=== PATIENT | male | born 1975 | race Caucasian/White ===

== ENCOUNTER 2019-03-15 12:43 | Emergency (ER) | payer SELFPAY ==
--- NOTE | 2019-03-15 15:18 | ED ---
Back Pain - HPI Summary HPI Summary: Seen by provider in H2 at 1507. The patient is a 43 y/o M presenting to [facility] accompanied by girlfriend's son Donald with a chief complaint of worsening lumbar spine pain that is chronic in nature but with a recurrent episode beginning on 03/13/19. He reports that he has had low back pain for approximately the last year, but this episode is noted as the worse one he has experienced thus far. When the pain started, he used 800mg Ibuprofen, with last dosage taken at 0800 today 03/15/19, to some relief of the pain, and there hasn't been any relief using heating pads. He notes that the back pain radiates throughout the bilateral lower back, and when he places more weight on the right lower enormity, there is "more pressure on the back," causing more pain. He additionally c/o numbness extending over the anterior right thigh, but it does not extend below the knee. The numbness is aggravated with sitting, especially for long periods of time. The numbness is not currently present while lying in the stretcher. Currently, the back pain is rated 7/10 in severity. He also denies any bladder or bowel incontinence. He denies any trauma to the back, and he states he hasn't recently pulled any muscles or lifted anything too heavy. Pt currently has no PCP. PMHx: HLD ( uncontrolled), cardiac hx (unsure of exact dx but supposed to take ASA). Heavy every day cigarette smoker, rare EtOH, no substance use. Vital signs from triage: HR 70 bpm, BP 121/91 mmHg, O2 sat 70% Medication non-compliant (supposed to be taking HLD meds and ASA). - History of Current Complaint Chief Complaint: EDBackInjuryPain Stated Complaint: BACK PAIN PER PT Time Seen by Provider: 03/15/19 15:07 Hx Obtained From: Patient Onset/Duration: Gradual Onset, Lasting Days - since 03/13/19, Still Present Onset/Duration: Started Days Ago, Atraumatic Timing: Constant, Lasting Days Back Pain Location: Is Discrete @ - bilateral low back Severity Initially: Mild Severity Currently: Moderate Pain Intensity: 7 Pain Scale Used: 0-10 Numeric Character: Aching Aggravating Symptom(s): Other - placing more weight on right leg increases back pain, sitting for extended periods of time worsens numbness in right thigh Alleviating Symptom(s): Other - Ibuprofen to mild to no relief, heating pads to no relief Associated Signs And Symptoms: Positive: Numbness - in right anterior thigh ( not below knee), Pain with Weight Bearing - placing more weight on right leg. Negative: Bladder Incontinence, Bowel Incontinence - Allergies/Home Medications Allergies/Adverse Reactions: Allergies Allergy/AdvReac Type Severity Reaction Status Date / Time No Known Allergies Allergy Verified 03/15/19 12:52 PMH/Surg Hx/FS Hx/Imm Hx Previously Healthy: No Endocrine/Hematology History: Reports: Hx Anticoagulant Therapy - ASA but not medication compliant Denies: Hx Diabetes Cardiovascular History: Reports: Hx Hypercholesterolemia, Other Cardiovascular Problems/Disorders - unknown dx to pt but he is "supposed to take ASA" Denies: Hx Hypertension - Surgical History Surgical History: None Surgery Procedure, Year, and Place: none Infectious Disease History: No Infectious Disease History: Denies: Traveled Outside the [place] in Last 30 Days - Family History Known Family History: Positive: Cardiac Disease - Social History Alcohol Use: Rare Hx Substance Use: No Substance Use Type: Reports: None Hx Tobacco Use: Yes Smoking Status (MU): Heavy Every Day Tobacco Smoker Review of Systems Constitutional: Negative Cardiovascular: Negative Respiratory: Negative Positive: Other - Negative: incontinence of stool Negative: incontinence Positive: Other - lumbar back pain, bilateral Skin: Negative Positive: Numbness - in right anterior thigh All Other Systems Reviewed And Are Negative: Yes Physical Exam - Summary Physical Exam Summary: Appearance: Well-appearing, moderate pain distress, well-nourished, strong odor of cigarette smoke Skin: Warm, color reflects adequate perfusion, dry Head: Normal Head/Face inspection, atraumatic Eyes: Conjunctiva clear ENT: Normal inspection Neck: Supple, no nodes, no JVD Respiratory: Lungs clear, normal breath sounds, no respiratory distress Cardio: RRR, No murmur, pulses normal, brisk capillary refill Abdomen: Soft, nontender Bowel sounds: Present Musculoskeletal: Strength Intact especially bilat lower extremites/ROM intact, sensation intact to light touch especially bilateral lower extremties, no calf tenderness, no edema, no spinal tenderness, bilateral paraspinous tenderness in lumbar area Psychological: Normal Neuro: Alert, muscle tone normal, no focal deficit, able to bear weight, normal gait. No weakness or dorsiflexion or plantar flexion. Triage Information Reviewed: Yes Vital Signs On Initial Exam: Initial Vitals Temp Pulse Resp BP Pulse Ox 98.6 F 70 18 121/91 98 03/15/19 12:49 03/15/19 12:49 03/15/19 12:49 03/15/19 12:49 03/15/19 12:49 Vital Signs Reviewed: Yes Procedures - Sedation Patient Received Moderate/Deep Sedation with Procedure: No Diagnostics - Vital Signs Vital Signs Temp Pulse Resp BP Pulse Ox 03/15/19 12:49 98.6 F 70 18 121/91 98 - Laboratory Lab Statement: Any lab studies that have been ordered have been reviewed, and results considered in the medical decision making process. - CT Lumbar Spine CT CT Interpretation Completed By: Radiologist Summary of CT Findings: Impression: 1. No fracture or traumatic malalignment of the lumbar spine. 2. Varying degrees of multilevel spondylosis results in moderate bilateral neural foraminal stenosis at L5-S1. ED physician has reviewed this report. Re-Evaluation - Re-Evaluation First Eval Re-Evaluation Time: 16:59 Change: Improved Comment: The patient's pain has slightly improved with Flexeril, so we will continue to administer pain medication. Second Eval Re-Evaluation Time: 18:45 Change: Improved Comment: We discussed CT results and plan for discharge following improvement of pain with medication. Back Pain Course/Dx - Course Course Of Treatment: Pt medications reviewed this visit. Nurses notes reviewed. Allergies noted. Pt is a 43 y/o M with cc of bilateral lumbar back pain that is chronically present over the last year with onset of a severe episode beginnging 03/13/19 accopmanied by right thigh numbness that does not extend below the knee, and worsening of low back pain with bearing more weight on right leg. Upon physical exam, the patient is in moderate pain distress with a strong odor of cigarette smoker and exhibits bilateral paraspinous tenderness , but no focal weakness or neuro deficit. In the ED course, the patient was administered Morphine 4mg IV, Toradol 30mg IVx1, and Flexeril 10mg x 1 and ondansetron 4mg IV with relief of the pain. Lumbar spine CT impression is negative for fracture, misalignment, or bluging or herniated disc, but there is spondylosis and moderate bilateral foraminal stenosis at L5-S1 noted. He will be prescribed Flexeril and Percocet for pain management following discharge and he is referred to [facility] to get established with a PCP. He understands and agrees with this plan. - Diagnoses Differential Diagnosis/HQI/PQRI: Positive: Arthritis, Compressive Cord Syndrome , Herniated Disc, Neoplasm, Strain Provider Diagnoses: Lumbar strain, Tobacco abuse disorder Discharge ED - Sign-Out/Discharge Documenting (check all that apply): Patient Departure - Patient will be discharged home with girlfriend's son Donald driving Patient Received Moderate/Deep Sedation with Procedure: No - Discharge Plan Condition: Stable Disposition: HOME Prescriptions: Cyclobenzaprine TAB* [Flexeril 10 MG TAB*] 10 mg PO TID PRN #30 tab PRN Reason: Pain - Mild oxyCODONE/Acetamin 5/325 MG* [Percocet 5/325 TAB*] 1 tab PO Q4H PRN #18 tab MDD 6 PRN Reason: Pain - Severe Patient Education Materials: Low Back Strain (ED) Forms: *Work Release Referrals: [facility] [Outside] - 2 Days Additional Instructions: In the ER, you were given Flexeril 10mg IV, Ketorolac 30mg IV, Morphine 4mg IV, and Zofran. You are given a copy of the Lumbar Spine CT results does not show a bulging or herniated disc. You should continue to take Flexeril and Percocet for severe pain. DO NOT DRIVE A MOTOR VEHICLE WITHIN 8 HOURS OF TAKING THE PERCOCET. You are also given a referral to find a primary care physician. Return to the emergency department for any new or worsening symptoms. - Billing Disposition and Condition Condition: STABLE Disposition: Home - Attestation Statements Document Initiated by Rossy: Yes Documenting Scribe: Sue Cornelius Provider For Whom Rossy is Documenting (Include Credential): MD Jerry Laughlinibandrew Attestation: Sue Armstrong scribed for Dr. Briseyda Stewart MD on 04/30/19 at 1453. Scribe Documentation Reviewed: Yes Provider Attestation: The documentation as recorded by the Sue vazquez accurately reflects the service I personally performed and the decisions made by me, Dr. Briseyda Stewart MD Status of Scribe Document: Viewed
[2019-03-15] MEDS ORDERED: Cyclobenzaprine TAB* 10 MG PO ONE (15:23)
[2019-03-15] MEDS ORDERED: Ketorolac *IM* INJ* 60 MG/2 ML VIAL IM ONE (15:24)
[2019-03-15] MEDS ORDERED: Cyclobenzaprine TAB* 10 MG ONE (15:25)
[2019-03-15 15:36] LABS: Urine Appearance Clear; Urine Bilirubin Negative (Negative); Urine Blood Negative (Negative); Urine Color Straw; Urine Glucose Negative (Negative); Urine Ketones Negative (Negative); Urine Nitrite Negative (Negative); Urine Protein Negative (Negative); Urine Specific Gravity 1.002 (1.010-1.030); Urine Urobilinogen Negative (Negative)
[2019-03-15] MEDS ORDERED: Ketorolac INJ* 30 MG/ML 1 ML VIAL IV PUSH ONE (15:40)
[2019-03-15] MEDS ORDERED: Ondansetron INJ* 2 MG/ML VIAL IV ONE (17:30)
[2019-03-15] MEDS ORDERED: Morphine 4 MG/ML VIAL (1 ml) 4 MG/ML VIAL IV ONE (17:30)
[2019-03-15 18:01] VITALS: BP 149/82
== END 2019-03-15 18:00 | disposition home or self-care (01) ==
LOC: ED 12:43
DX: S39.012A Strain of muscle, fascia and tendon of lower back, initial encounter (principal); X58.XXXA Exposure to other specified factors, initial encounter; Y92.9 Unspecified place or not applicable; R20.0 Anesthesia of skin; M47.817 Spondylosis without myelopathy or radiculopathy, lumbosacral region; E78.00 Pure hypercholesterolemia, unspecified; Z79.82 Long term (current) use of aspirin; Z91.14 Patient's other noncompliance with medication regimen; F17.200 Nicotine dependence, unspecified, uncomplicated
CPT/HCPCS: 72131; 81003; 96374; 96375; 99282; A9270-GY; J1885; J2270; J2405

== ENCOUNTER 2019-05-08 18:11 | Emergency (ER) | payer SELFPAY ==
[2019-05-08 20:14] LABS: Urine Appearance Clear; Urine Bilirubin Negative (Negative); Urine Blood Negative (Negative); Urine Color Straw; Urine Glucose Negative (Negative); Urine Ketones Negative (Negative); Urine Nitrite Negative (Negative); Urine Protein Negative (Negative); Urine Specific Gravity 1.003 (1.010-1.030); Urine Urobilinogen Negative (Negative)
--- NOTE | 2019-05-08 21:06 | ED ---
GI/ HPI - HPI Summary HPI Summary: This patient is a 43 year old M presenting to [facility] with a chief complaint of intermittent R testicular pain since middle of last week depending on position particularly if sitting or not. Symptoms aggravated by position. Symptoms alleviated by nothing. Pt reports testicular swelling. Denies erythema, dysuria , and fever. Pt reports he never had similar symptoms before though he had a hernia when he was 1 yr old (had surgery). MHx hypercholesterolemia. Smokes currently. FMHx hypertension, cardiac issues. - History of Current Complaint Chief Complaint: EDUrogenitalProblems Time Seen by Provider: 05/08/19 19:35 Stated Complaint: R TESTICLE IS SWOLLEN PER PT Hx Obtained From: Patient Onset/Duration: Started Days Ago Timing: Intermittent Pain Intensity: 2 Additional Locations for Males: Testicles Associated Signs and Symptoms: Positive: Other: - testicular swelling; denies testicular erythema. Negative: Fever, Dysuria Aggravating Factor(s): Sitting Alleviating Factor(s): Nothing - Allergy/Home Medications Allergies/Adverse Reactions: Allergies Allergy/AdvReac Type Severity Reaction Status Date / Time No Known Allergies Allergy Verified 05/08/19 18:17 PMH/Surg Hx/FS Hx/Imm Hx Endocrine/Hematology History: Reports: Hx Anticoagulant Therapy - ASA but not medication compliant Denies: Hx Diabetes Cardiovascular History: Reports: Hx Hypercholesterolemia, Other Cardiovascular Problems/Disorders - unknown dx to pt but he is "supposed to take ASA" Denies: Hx Hypertension - Surgical History Surgery Procedure, Year, and Place: hernia surgery Infectious Disease History: No Infectious Disease History: Denies: Traveled Outside the [place] in Last 30 Days - Family History Known Family History: Positive: Cardiac Disease Negative: Hypertension - Social History Alcohol Use: Rare Hx Substance Use: No Substance Use Type: Reports: None Hx Tobacco Use: Yes Smoking Status (MU): Heavy Every Day Tobacco Smoker Review of Systems Negative: Fever Genitourinary: Other - denies testicular eythema, Positive: other - testicular pain, swelling. Negative: dysuria All Other Systems Reviewed And Are Negative: Yes Physical Exam - Summary Physical Exam Summary: Constitutional: Well-developed, Well-nourished, Alert. (-) Distressed Skin: Warm, Dry HENT: Normocephalic; Atraumatic Eyes: Conjunctiva normal Neck: Musculoskeletal ROM normal neck. (-) JVD, (-) Stridor, (-) Nuchal rigidity Cardio: Rhythm regular, rate normal, Heart sounds normal; Intact distal pulses; Radial pulses are 2+ and symmetric. (-) Murmur Pulmonary/Chest wall: Effort normal. (-) Respiratory distress, (-) Wheezes, (-) Rales Abd: Soft, (-) tenderness, (-) Distension, (-) Guarding, (-) Rebound :tenderness of the right inguinal canal, mild tenderness of the right testicle , no erythema or notable swelling Musculoskeletal: (-) Edema Lymph: (-) Cervical adenopathy Neuro: Alert, Oriented x3 Psych: Mood and affect Normal Triage Information Reviewed: Yes Vital Signs On Initial Exam: Initial Vitals Temp Pulse Resp BP Pulse Ox 98.8 F 90 16 156/97 98 05/08/19 18:14 05/08/19 18:14 05/08/19 18:14 05/08/19 18:14 05/08/19 18:14 Vital Signs Reviewed: Yes Procedures - Sedation Patient Received Moderate/Deep Sedation with Procedure: No Diagnostics - Vital Signs Vital Signs Temp Pulse Resp BP Pulse Ox 05/08/19 18:14 98.8 F 90 16 156/97 98 - Laboratory Lab Results: Lab Results 05/08/19 Range/Units 20:03 Urine Color Straw Urine Appearance Clear Urine pH 6.0 (5-9) Ur Specific [place] 1.003 L (1.010-1.030) Urine Protein Negative (Negative) Urine Ketones Negative (Negative) Urine Blood Negative (Negative) Urine Nitrate Negative (Negative) Urine Bilirubin Negative (Negative) Urine Urobilinogen Negative (Negative) Ur Leukocyte Esterase Negative (Negative) Urine Glucose Negative (Negative) Lab Statement: Any lab studies that have been ordered have been reviewed, and results considered in the medical decision making process. - Ultrasound Testicular US Ultrasound Interpretation Completed By: Radiologist Summary of Ultrasound Findings: Per radiologist,. 1. Septated right hydrocele. 2. Left testicular cyst. 3. No suspicious testicular mass. ED physician has reviewed this imaging report. Re-Evaluation - Re-Evaluation First Eval Re-Evaluation Time: 20:50 Change: Improved - patient updated on neg US and labs. Will follow up w PCP. GIGU Course/Dx - Course Course Of Treatment: 43-year-old male presents with right testicular pain. On exam mild tenderness of the inguinal canal, no obvious erythema or swelling of the testicle. Denies infectious symptoms. We'll check an ultrasound, and urinalysis. Differential includes epidydmitis/orchitis, testicular torsion ( lower suspicion given dull pain and benign exam), hernia. - Diagnoses Provider Diagnoses: Testicular pain, Hydrocele Discharge ED - Sign-Out/Discharge Documenting (check all that apply): Patient Departure - discharge - Discharge Plan Condition: Stable Disposition: HOME Patient Education Materials: Hydrocele (ED), Testicle Pain (ED) Referrals: [facility] [Outside] - 3 Days Additional Instructions: You were seen in the emergency department for testicular swelling and pain. Ultrasound showed cause of his pain. You do have a small hydrocele on the right testicle as well as a small cyst on the left testicle. If any studies were not completed at the time of discharge you will be called with the relevant results. Please follow up with your primary care doctor in next 2-3 days and return to emergency department for worsening pain, swelling of the testicle or concerning symptoms. It was a pleasure taking care of you today. - Billing Disposition and Condition Condition: STABLE Disposition: Home - Attestation Statements Document Initiated by Rossy: Yes Documenting Scribe: Vero Torres Provider For Whom Rossy is Documenting (Include Credential): Dr. Roberto Handley MD Scribe Attestation: Vero Armstrong scribed for Dr. Roberto Handley MD on 05/09/19 at 0947. Scribe Documentation Reviewed: Yes Provider Attestation: The documentation as recorded by the Vero vazquez accurately reflects the service I personally performed and the decisions made by me, Dr. Roberto Handley MD Status of Scribandrew Document: Viewed
[2019-05-08 21:53] VITALS: BP 126/90
== END 2019-05-08 21:25 | disposition home or self-care (01) ==
LOC: ED 18:11
DX: N50.811 Right testicular pain (principal); N43.3 Hydrocele, unspecified; N44.2 Benign cyst of testis; Z91.14 Patient's other noncompliance with medication regimen; F17.200 Nicotine dependence, unspecified, uncomplicated
CPT/HCPCS: 76870; 81003; 99282

== ENCOUNTER 2019-05-30 18:29 | Emergency (ER) | payer SELFPAY ==
[2019-05-30 18:34] VITALS: BP 134/88
== END 2019-05-30 21:29 | disposition left against medical advice (07) ==
LOC: ED 18:29
DX: N50.89 Other specified disorders of the male genital organs (principal); Z53.21 Procedure and treatment not carried out due to patient leaving prior to being seen by health care provider